=== PATIENT | female | born 1940 | race Two or more races ===

== ENCOUNTER 2024-01-12 10:56 | Inpatient (IN) | payer OTHER ==
[~2024-01-12] VITALS: Ht 147.3 cm; Wt 65.0 kg
[2024-01-12 10:59] VITALS: BP 155/54; PULSE 70; RESP 16; TEMP 97.4; O2SAT 98
[2024-01-12 11:01] VITALS: BP 164/98; PULSE 68; RESP 17; TEMP 97.8; O2SAT 99
--- NOTE | 2024-01-12 11:33 | NUR ---
BIB HOME PT WAS REFFERED BY DOCTOR MARIAM TO BE SEEN IN ER DUE TO PT BILATERAL LEG EDEMA DENIES N/V/D, CP, SOB, FLU S/S. PMHX HTN, CHF, DM, HEAR FAILURE, KIDNEY PROBLEM, RA. ALLERGY PENICILLINS HIVES REACTION.
[2024-01-12 11:42] LABS: BASOPHILS # (AUTO) 0.1 K/uL (0.00-0.22); BASOPHILS % (AUTO) 0.7 % (0.0-2.0); EOSINOPHILS # (AUTO) 0.2 K/uL (0-0.4); EOSINOPHILS % (AUTO) 2.4 % (0.0-4.0); HEMATOCRIT 32.1 % (36-48); HEMOGLOBIN 10.7 g/dL (12.0-16.0); LYMPHOCYTES # (AUTO) 0.8 K/uL (2.5-16.5); LYMPHOCYTES % (AUTO) 8.5 % (20.5-51.1); MEAN CORPUSCULAR HEMOGLOBIN 31 pg (27-31); MEAN CORPUSCULAR HGB CONC 34 g/dL (33-37); MEAN CORPUSCULAR VOLUME 92.8 fL (80-94); MONOCYTES # (AUTO) 0.9 K/uL (0.8-1.0); MONOCYTES % (AUTO) 10.7 % (1.7-9.3); NEUTROPHILS # (AUTO) 6.9 K/uL (1.8-7.7); NEUTROPHILS % (AUTO) 77.7 % (42.2-75.2); PLATELET COUNT (AUTO) 262 K/uL (140-450); RED BLOOD CELL COUNT(AUTO) 3.46 MIL/uL (4.20-5.40); RED CELL DISTRIBUTION WIDTH 14.4 % (11.6-13.7); WHITE BLOOD COUNT (AUTO) 8.9 K/uL (4.8-10.8)
[2024-01-12 11:53] LABS: ANION GAP 14.1 (8-16); CALCIUM 9.3 mg/dL (8.5-10.1); CARBON DIOXIDE 25.7 mmol/L (21-32); CHLORIDE 104 mmol/L (98-107); CREATININE 1.7 mg/dL (0.6-1.3); GLUCOSE 218 mg/dL (74-106); POTASSIUM 3.8 mmol/L (3.5-5.1); SODIUM SERUM 140 mmol/L (136-145); UREA NITROGEN, BLOOD 40 mg/dL (7-18)
[2024-01-12] MEDS ORDERED: FUROSEMIDE 100 MG/10 ML VIAL ONE ×3 (12:09→17:07)
[2024-01-12] MEDS: MORPHINE SULFATE 4 MG/ML SYR IVP ONE (12:16)
[2024-01-12] MEDS: FUROSEMIDE 100 MG/10 ML VIAL IVP ONE (12:24)
[2024-01-12] MEDS ORDERED: HYDROcodone/APAP 5/325 MG 1 TAB TAB PO PRN (13:15)
[2024-01-12] MEDS ORDERED: MAG SULF 2000 MG/WATER PREMIX 50 ML IV PRN (13:15)
[2024-01-12] MEDS ORDERED: ONDANSETRON 4 MG/2 ML VIAL IVP PRN (13:15)
[2024-01-12] MEDS ORDERED: ACETAMINOPHEN 325 MG TAB PO PRN (13:15)
[2024-01-12] MEDS ORDERED: MAGNESIUM OXIDE 400 MG TAB PO PRN (13:15)
[2024-01-12] MEDS ORDERED: MORPHINE SULFATE 4 MG/ML SYR IVP PRN (13:15)
[2024-01-12] MEDS ORDERED: KCL 20 MEQ IN 100 mL PREMIX 200 ML IV PRN (13:15)
[2024-01-12] MEDS ORDERED: POTASSIUM CHLORIDE 10 MEQ TABER PO PRN (13:15)
--- NOTE | 2024-01-12 14:00 | NUR ---
PT DAUGTHER REQUESTED FOOD FOR PT. HOSPITAL FOOD GIVEN TO PT AT BEDSIDE DAUGTHER IS FEEDING PT.
--- NOTE | 2024-01-12 15:54 | NUR ---
PT RESTING IN BED NONE DISTRESS AT THIS TIME. APPRENTICE INSTRUMENT TECHNICIAN AT BEDSIDE.
[2024-01-12] MEDS: FUROSEMIDE 100 MG/10 ML VIAL IVP SCH (17:15)
--- NOTE | 2024-01-12 19:20 | NUR ---
REPORT GIVEN TO JOSE L LARA. NO FURTHER QUESTIONS ASKED. PT NON DISTRESS NO COMPLAINTS
--- NOTE | 2024-01-12 19:33 | NUR ---
Pt is awake cape verdean speaker, ressting on the bed with room air,non ambulatory because the pain in the leg.
--- NOTE | 2024-01-12 20:00 | NUR ---
Pt is care is given, pt voided 50 ml. Pt is tolerated well
[2024-01-12] MEDS ORDERED: METF-346 PO (20:09)
[2024-01-12] MEDS ORDERED: GLIP5TER PO (20:09)
[2024-01-12] MEDS ORDERED: ATOR40TA PO (20:10)
[2024-01-12] MEDS ORDERED: MAGN64TA3 PO (20:11)
[2024-01-12] MEDS ORDERED: ISOS10TA19 PO (20:12)
[2024-01-12] MEDS ORDERED: CARV3.12 PO (20:12)
[2024-01-12] MEDS ORDERED: CLOP75TA55 PO (20:13)
[2024-01-12] MEDS ORDERED: LISI-951 PO (20:13)
[2024-01-12] MEDS ORDERED: VITA400T14 GT (20:14)
[2024-01-12] MEDS ORDERED: OMEP-303 PO (20:15)
[2024-01-12] MEDS ORDERED: BUME2TAB PO (20:16)
[2024-01-12] MEDS ORDERED: BUME1TAB PO (20:16)
[2024-01-12] MEDS ORDERED: FERR-21 PO (20:16)
[2024-01-12] MEDS ORDERED: ESCI5TAB18 PO (20:17)
[2024-01-12] MEDS ORDERED: ACET325C8 PO (20:18)
[2024-01-12] MEDS ORDERED: MUPI2CRE22 TP (20:18)
[2024-01-12] MEDS ORDERED: BEN10 PO (20:19)
--- NOTE | 2024-01-12 20:45 | NUR ---
Patient will be admitted to care of [facility] [place]. Admited to telemerty . Will go to room 105 a. Belongings list completed. Report to jaylon diamond.
[2024-01-12 20:48] VITALS: BP 108/42; PULSE 5; PULSE 92; RESP 17; RESP 18; TEMP 96.5; O2SAT 95
--- NOTE | 2024-01-12 20:48 | NUR ---
PT RECEIVED TO ROOM 105A VIA GURNEY FROM ER PER MD [facility] WITH C/C LEVAR. LOWER EXTREMITY EDEMA AND RECOMMENDATION TO PROCEED TO ER PER KATARZYNA HORN. DX: CHF. PMH: CHF, DM, HTN, RA, HLD, ASTHMA, PNA, FLU, COVID. KIDNEY DISEASE. SURGERIES: CHOLECYSTECTOMY,RIGHT BREAST CYST REMOVAL, APPENDECTOMY, TORN RIGHT KNEE MENISCUS. STATED BILATERAL KNEE WAS 8/10 NOW 0/10. POSITIONED IN BED PER COMFORT WITH 3 MAN TRANSFER. POSITIONED PER COMFORT. ORIENTED TO ROOM AND CALL LIGHT.
[2024-01-12] MEDS ORDERED: ZOLPIDEM 5 MG TAB PO PRN (21:00)
[2024-01-12] MEDS ORDERED: ATORVASTATIN 20 MG TAB PO SCH (21:00)
--- NOTE | 2024-01-12 23:30 | NUR ---
HS MEDS GIVEN. TUCKED IN WITH WARM BLANKET. ICE CHIPS AT BEDSIDE. REQUESTED TV OUT AND SETTLED FOR THE NIGHT WITHOUT C/O. PURE WICK IN PLACE. PAD CHANGED. CONT TO MONITOR AND ASSIST NEEDED.
[2024-01-12 23:54] VITALS: PULSE 81
[2024-01-13] VITALS: BP 103/31; PULSE 86; RESP 18; TEMP 96.6; O2SAT 94
[2024-01-13 04:00] VITALS: BP 110/47; PULSE 86; PULSE 99; RESP 20; TEMP 97.1; O2SAT 93
[2024-01-13] MEDS: LORazepam 1 MG TAB PO PRN (04:00)
--- NOTE | 2024-01-13 04:00 | NUR ---
ERICKA FOR STATED ANXIETY. DENIES NEED FOR PAIN MED.
--- NOTE | 2024-01-13 05:00 | NUR ---
STATED, ATIVAN EFFECTIVE IN ANXIETY RELIEF.
--- NOTE | 2024-01-13 07:30 | NUR ---
HAND-OFF REPORT TO ONCOMING A.M NURSE WITH BEDSIDE ROUNDS. ENDORSED: NEW ADMIT ARRIVED TO FLOOR AT 2047 FOR BILAT LOWER EXTREM PAIN PENDING RESULT VESUS DOPPLER. DENIED PAIN MED NEEDS AND INSTEAD ASKED FOR ANXIETY MED. ATIVAN GIVEN AT 399. EFFECTIVE. RELINQUISHED CARE OF PT AT THIS TIME.
--- NOTE | 2024-01-13 07:30 | NUR ---
RECEIVED BEDSIDE REPORT FROM NEON SIGN MECHANIC NURSE OF PT FOR CONTINUITY OF CARE. PT IS SLEEPING. NO RESPIRATORY DISTRESS OR SOB NOTED. NO INFUSING OF IVF. SAFETY MEASURES IN PLACE. CALL LIGHT KEEP WITHIN REACH.
[2024-01-13 07:37] LABS: BASOPHILS % (AUTO) 0.6 % (0.0-2.0); EOSINOPHILS # (AUTO) 0.3 K/uL (0-0.4); EOSINOPHILS % (AUTO) 3.9 % (0.0-4.0); HEMATOCRIT 32.2 % (36-48); HEMOGLOBIN 10.8 g/dL (12.0-16.0); LYMPHOCYTES # (AUTO) 0.8 K/uL (2.5-16.5); LYMPHOCYTES % (AUTO) 10.3 % (20.5-51.1); MEAN CORPUSCULAR HEMOGLOBIN 31 pg (27-31); MEAN CORPUSCULAR HGB CONC 34 g/dL (33-37); MEAN CORPUSCULAR VOLUME 93.1 fL (80-94); MONOCYTES # (AUTO) 0.9 K/uL (0.8-1.0); MONOCYTES % (AUTO) 11.8 % (1.7-9.3); NEUTROPHILS # (AUTO) 5.8 K/uL (1.8-7.7); NEUTROPHILS % (AUTO) 73.4 % (42.2-75.2); PLATELET COUNT (AUTO) 281 K/uL (140-450); RED BLOOD CELL COUNT(AUTO) 3.45 MIL/uL (4.20-5.40); RED CELL DISTRIBUTION WIDTH 14.1 % (11.6-13.7); WHITE BLOOD COUNT (AUTO) 7.9 K/uL (4.8-10.8)
[2024-01-13 07:51] LABS: ANION GAP 15.2 (8-16); CALCIUM 9.4 mg/dL (8.5-10.1); CARBON DIOXIDE 26.3 mmol/L (21-32); CHLORIDE 105 mmol/L (98-107); CREATININE 1.7 mg/dL (0.6-1.3); GLUCOSE 113 mg/dL (74-106); POTASSIUM 3.5 mmol/L (3.5-5.1); SODIUM SERUM 143 mmol/L (136-145); UREA NITROGEN, BLOOD 36 mg/dL (7-18)
[2024-01-13 08:00] VITALS: BP 105/40; PULSE 73; PULSE 92; PULSE 98; RESP 18; TEMP 96.9; O2SAT 96
[2024-01-13] MEDS ORDERED: ASPIRIN 81 MG TAB.CHEW PO SCH (09:00)
--- NOTE | 2024-01-13 10:18 | NUR ---
ENDORSED PT TO TIMMY FOR CONTINUITY OF CARE. PT IS RESTING IN BED. NO DISTRESS NOTED
--- NOTE | 2024-01-13 10:19 | NUR ---
PATIENT HAS BEEN SCREENED AND CATEGORIZED MODERATE NUTRITION RISK. PATIENT WILL BE SEEN WITHIN 3-5 DAYS OF ADMISSION. 01/15/24 01/17/[address]
--- NOTE | 2024-01-13 10:20 | NUR ---
Patient's daughter, Ketty, requests to speak with regarding the dose of lasix. made aware.
--- NOTE | 2024-01-13 10:20 | NUR ---
Report received from MARCO Altamirano for continuity of care. Patient stable condition. No distress noted.
[2024-01-13 12:00] VITALS: BP 110/76; PULSE 74; PULSE 97; RESP 20; TEMP 97.2; O2SAT 98
[2024-01-13 13:23] VITALS: BP 134/76; PULSE 84; RESP 80; TEMP 98.2
[2024-01-13 13:55] VITALS: BP 121/40; RESP 78; TEMP 97.4
--- NOTE | 2024-01-13 15:15 | NUR ---
Patient ready for discharge. All paperwork and medication education provided. Patient agreeable to discharge. Patient alert and oriented x4. No neuro deficits noted. No c/o pain. Patient ambulatory with steady gait to wheelchair and then taken to lobby. No acute distress noted. Patient escorted to front of lobby and picked up by ride.
== END 2024-01-13 15:18 | disposition home or self-care (01) | DRG 291 ==
LOC: MED 10:56 → MTU 13:17
PROVIDERS: ADMIT Internal Medicine; ATTEND Internal Medicine
DX: I13.0 Hypertensive heart and chronic kidney disease with heart failure and stage 1 through stage 4 chronic kidney disease, or unspecified chronic kidney disease (principal); I50.33 Acute on chronic diastolic (congestive) heart failure; R65.10 Systemic inflammatory response syndrome (SIRS) of non-infectious origin without acute organ dysfunction; E11.42 Type 2 diabetes mellitus with diabetic polyneuropathy; N18.30 Chronic kidney disease, stage 3 unspecified; E11.22 Type 2 diabetes mellitus with diabetic chronic kidney disease; G72.9 Myopathy, unspecified; Z88.0 Allergy status to penicillin; Z79.899 Other long term (current) drug therapy; Z90.49 Acquired absence of other specified parts of digestive tract; Z79.1 Long term (current) use of non-steroidal anti-inflammatories (NSAID); Z99.3 Dependence on wheelchair
CPT/HCPCS: 36415; 71045; 80048; 83735; 83880; 84484; 85025; 87081; 93005; 93970; 96374; 96375; 99285; J1644; J1940; J2270; Q0092